=== PATIENT | female | born 1995 | race American Indian/Alaskan Native ===

== ENCOUNTER 2016-10-01 01:39 | Emergency (ER) | payer SELFPAY ==
[2016-10-01 02:43] LABS: Basophils % (Auto) 0.9 % (0.0-1.8); Eosinophils % (Auto) 1.5 % (0.0-4.3); Hematocrit 37.9 % (30.3-42.9); Hemoglobin 13.1 gm/dl (10.1-14.3); Mean Corpuscular HGB Conc 35 % (30-34); Mean Corpuscular Hemoglobin 32 pg (28-32); Mean Corpuscular Volume 91 fl (79-97); Platelet Count 288 K/mm3 (140-440); Red Blood Count 4.15 M/mm3 (3.65-5.03); Red Cell Distribution Width 13.3 % (13.2-15.2)
[2016-10-01 06:41] LABS: Bilirubin,Urine NEG (Negative); Blood,Urine LG (Negative); Ketones,Urine TR mg/dL (Negative); Leukocyte Esterase,Urine NEG (Negative); Mucus,Urine 1+ /HPF; Nitrite,Urine NEG (Negative); Protein,Urine <15 mg/dL mg/dL (Negative); Urobilinogen,Urine < 2.0 mg/dL (<2.0)
[2016-10-01 10:04] VITALS: BP 118/77
--- NOTE | 2016-10-01 10:26 | Emergency Department Report ---
Chief Complaint: Abdominal Pain Stated Complaint: PELVIC PAIN Time Seen by Provider: 10/01/16 10:24 - HPI History of Present Illness: PT c/o pelvic pain since yesterday. + bleeding PT states her cycle was late. - ROS Review of Systems: + concern for + vaginal bleeding - Exam Vital Signs: Vital Signs 10/01/16 10/01/16 01:46 09:50 Temperature 98.4 F 98.4 F Pulse Rate 81 71 Respiratory 18 16 Rate Blood Pressure 116/76 118/77 O2 Sat by Pulse 97 99 Oximetry Physical Exam: PT looks well, non toxic. Steady gait MSE screening note: Focused history and physical exam performed. Due to findings the following was ordered: pelvic exam ED Medical Decision Making - Lab Data Result diagrams: 10/01/16 02:28 ED Disposition for MSE Condition: Stable Instructions: Abdominal Pain (ED) Referrals: PRIMARY CARE, [Primary Care Provider] - 3-5 Days
[2016-10-01] MEDS ORDERED: ZITHROMAX PO ONE (11:59)
[2016-10-01] MEDS ORDERED: XYLOCAINE 1% MPF 5 mL INFILTRATI ONE (11:59)
[2016-10-01] MEDS ORDERED: ROCEPHIN IM ONE (11:59)
--- NOTE | 2016-10-01 13:13 | Emergency Department Report ---
ED Female HPI - General Chief complaint: Abdominal Pain Stated complaint: PELVIC PAIN Time Seen by Provider: 10/01/16 10:22 Source: patient Mode of arrival: Ambulatory Limitations: No Limitations - History of Present Illness Initial comments: 21 year old female presents to ED with vaginal bleeding and discharge. patient states she is worried about her IUD being out of place. patient states she would also like to be tested and treated for STD. patient is stable, neurologically intact and in no acute distress. patient denies abdominal pain, N /V, dysuria. MD Complaint: vaginal bleeding, vaginal discharge, pelvic pain, possible STD -: Gradual Severity: mild Quality: cramping Consistency: constant Worsens with: menstrual period Are you Now?: No Associated Symptoms: vaginal discharge, vaginal bleeding. denies: nausea/ vomiting, fever/chills, dysuria - Related Data Sexually active: Yes Allergies Allergy/AdvReac Type Severity Reaction Status Date / Time No Known Allergies Allergy Verified 10/01/16 01:50 ED Review of Systems ROS: Stated complaint: PELVIC PAIN Other details as noted in HPI Constitutional: denies: chills, fever Eyes: denies: eye pain, eye discharge, vision change ENT: denies: ear pain, throat pain Respiratory: denies: cough, shortness of breath, wheezing Cardiovascular: denies: chest pain, palpitations Endocrine: no symptoms reported Gastrointestinal: denies: abdominal pain, nausea, diarrhea Genitourinary: discharge, abnormal menses, other (pelvic pain). denies: urgency , dysuria Musculoskeletal: denies: back pain, joint swelling, arthralgia Skin: denies: rash, lesions Neurological: denies: headache, weakness, paresthesias Psychiatric: denies: anxiety, depression Hematological/Lymphatic: denies: easy bleeding, easy bruising ED Past Medical Hx - Past Medical History Previous Medical History?: No - Surgical History Past Surgical History?: No - Social History Smoking Status: Never Smoker Substance Use Type: None ED Physical Exam - General Limitations: No Limitations General appearance: alert, in no apparent distress - Head Head exam: Present: atraumatic, normocephalic - Eye Eye exam: Present: normal appearance - ENT ENT exam: Present: normal exam, mucous membranes moist, TM's normal bilaterally - Neck Neck exam: Present: normal inspection - Respiratory Respiratory exam: Present: normal lung sounds bilaterally. Absent: respiratory distress - Cardiovascular Cardiovascular Exam: Present: regular rate, normal rhythm. Absent: systolic murmur, diastolic murmur, rubs, gallop - GI/Abdominal GI/Abdominal exam: Present: soft, normal bowel sounds. Absent: distended, tenderness - External exam: Present: normal external exam Speculum exam: Present: vaginal discharge, vaginal bleeding - Extremities Exam Extremities exam: Present: normal inspection - Back Exam Back exam: Present: normal inspection, full ROM. Absent: tenderness - Neurological Exam Neurological exam: Present: alert, oriented X3, normal gait - Psychiatric Psychiatric exam: Present: normal affect, normal mood - Skin Skin exam: Present: warm, dry, intact, normal color. Absent: rash ED Course Vital Signs 10/01/16 10/01/16 01:46 09:50 Temperature 98.4 F 98.4 F Pulse Rate 81 71 Respiratory 18 16 Rate Blood Pressure 116/76 118/77 O2 Sat by Pulse 97 99 Oximetry ED Medical Decision Making - Lab Data Result diagrams: 10/01/16 02:28 - Radiology Data patient refused pelvic ultrasound and would like to sign out AMA - Medical Decision Making 21 year old female presents to ED with pelvic pain, vaginal bleeding, vaginal discharge. pelvic exam performed and IUD appears to be in place. 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 patient was treated at her request for GC with IM and PO antibiotics during ED visit and culture is pending. patient is neurologically intact and in no acute distress. She has normal mental status and full decisional capacity to sign out AMA. The patient understands her condition and the risks of leaving AMA, including but not limited to permanent disability, etc., and has had an opportunity to ask questions about her medical condition. 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 Critical care attestation.: If time is entered above; I have spent that time in minutes in the direct care of this critically ill patient, excluding procedure time. ED Disposition Clinical Impression: Pelvic pain Disposition: DC-07 LEFT AGAINST MED ADVICE Is pt being admited?: No Does the pt Need Aspirin: No Condition: Undetermined Referrals: [facility] [Outside] - 2-3 Days Forms: AMA Form
== END 2016-10-01 12:53 | disposition left against medical advice (07) ==
LOC: ED 01:39
DX: R10.2 Pelvic and perineal pain (principal)
CPT/HCPCS: 36415; 81001; 81025; 85025; 87210; 87591; 96372; 99284; J0696